=== PATIENT | male | born 1975 | race Caucasian/White ===

== ENCOUNTER 2024-11-27 18:03 | Emergency (ER) | payer BC, SELFPAY ==
--- OUTSIDE RECORDS SUMMARY | 2024-11-27 18:06 | XMS_ITS | Clinical Summary ---
Author Organization [facility] Address [address], [facility] [address] [place] [address] Phone Care Team Providers Care Project Surveyor Name Role Phone Provider, Unknown Primary Care Provider Unavaila ble Allergies Active Allergy Reactions Criticality Noted Date Comments Codeine Other (see Comments) 07/31/2022 Hydrocodone-Acetaminophen Other (see Comments) Low 09/04/2017 Insomnia Penicillins Unknown 07/31/2022 Medications sertraline (ZOLOFT) 50 MG Tablet Take 50 mg by mouth daily. 07/21/2022 Active Multivitamin-Min erals Tablet Take by mouth. Active fluticasone (FLONASE) 50 MCG/ACT Suspension 2 Sprays by Nasal route. 02/05/2019 Active ondansetron (ZOFRAN-ODT) 4 MG TABLET DISPERSIBLEIndic ations:Nausea Take 1 Tablet by mouth every 8 hours as needed for Nausea - 1st line. 10 Tablet 07/31/2022 Active Active Problems No known active problems Immunizations Immunization Administration Dates Next Due Covid-19, Mrna, Lnp-s, PF, 5 0 mcg/0.25 mL dose (Moderna) 08/13/2021 Social History Tobacco Use Types Packs/Day Years Used Date Smoking Tobacco: Never Smokeless Tobacco: Never Tobacco Cessation:Counseling Given: Not Answered Alcohol Use Standard Drinks/Week Comments Not Currently 0 (1 standard drink = 0.6 oz pur e alcohol) Sex and Gender Information Value Date Recorded Sex Assigned at Not on file Legal Sex Male 12:06 AM CDT Gender Identity Not on file Sexual Orientation Not on file Last Filed Vital Signs Vital Sign Reading Time Taken Comments Blood Pressure 114/82 07/31/2022 4:10 PM SALVAGE ENGINEER Pulse 93 07/31/2022 4:10 PM SALVAGE ENGINEER Temperature 36.5 C (97.7 F) 07/31/2022 4:10 PM SALVAGE ENGINEER Respiratory Rate 18 07/31/2022 4:10 PM SALVAGE ENGINEER Oxygen Saturation 99% 07/31/2022 4:10 PM SALVAGE ENGINEER Inhaled Oxygen Concentration - - Weight - - Height - - Body Mass Index - - Plan of Treatment Health Maintenance Due Date Last Done Comments Hepatitis C Virus (HCV) Screening 1975 Hepatitis B Immunization (1 of 3 - 19+ 3-dose series) 1994 Colonoscopy 2020 Colorectal Cancer Screening 2020 Influenza Immunization (#1) 2024 07/31/2017 SARS-COV-2 Immunization ( season) 2024 08/13/2021, 11/02/2020, 10/01/2020 Respiratory Syncytial Virus (RSV) Immunization (Adult) (1 - 1-dose 75+ series) 2050 DTaP/Tdap/Td Immunization Discontinued 2021, 07/22/2011 TdaP Immunization Completed 07/21/2022, 07/22/2011 Meningococcal Immunization (ACWY) Aged Out No longer eligible based on patient's age to complete this topic Pneumococcal Immunization Combined Aged Out No longer eligible based on patient's age to complete this topic Rotavirus Immunization Aged Out No lo nger eligible based on patient's age to complete this topic [place] [address] [place] [address] Care Teams Project Surveyor Relationship Specialty Start Date End Date Provider, Unknown UNKNOWN PCP - General 07/31/22
--- OUTSIDE RECORDS SUMMARY | 2024-11-27 18:06 | XMS_ITS | Clinical Summary ---
Author Organization [facility] Building A Address [address] [place] [address] Care Team Providers Care Instructional Manager Name Role Phone Leonardo Dillon MD Primary Care Provider [phone] Allergies Active Allergy Reactions Criticality Noted Date Comments Codeine Fish Containing Products Unknown 01/04/2018 Pt states he's allergic to seafood but does not know the reaction;its been a long time since he has eaten it Penicillins Hydrocodone-Acetaminoph en Other (See comments) Low 09/04/2017 Insomnia Medications multivitamin-Ca- iron-minerals 18-0.4 mg tablet Take by mouth. Active fluticasone propionate (FLONASE) 50 mcg/actuation nasal sprayIndications :Seasonal allergic rhinitis, unspecified trigger Administer 2 sprays into each nostril daily 16 g 11 9 Active cyclobenzaprine (FLEXERIL) 10 mg tablet Take 1 tablet (10 mg total) by mouth 2 (two) times a day as needed for muscle spasms 20 tablet 3 Active Additional Information Patient not taking.Reported on 08/26/2024 naproxen (NAPROSYN) 500 mg tablet Take 1 tablet (500 mg total) by mouth 2 (two) times a day as needed for pain Take with food. 30 tablet 3 Active sertraline (ZOLOFT) 50 mg tabletIndication s:Mild episode of recurrent major depressive disorder,General ized anxiety disorder TAKE 1 TABLET BY MOUTH EVERY DAY 90 tablet 1 4 Active Active Problems Problem Noted Date Diagnosed Date Annual physical exam 08/26/2024 Assessment & Plan (08/26/2024 1:55 PM FAGOTER): Discussed lifestyle modifications, diet and exercise. Routine blood work ordered/reviewed today. Yearly vision and dental examinations. Mixed hyperlipidemia 08/26/2024 Assessment & Plan (08/26/2024 2:03 PM FAGOTER): Lab Results Component Value Date CHOL 201 (H) 08/23/2024 CHOL 190 08/10/2023 CHOL 202 (H) 09/01/2022 Lab Results Component Value Date HDL 59 08/23/2024 HDL 49 08/10/2023 HDL 62 09/01/2022 Lab Results Component Value Date LDLCALC 124 08/23/2024 LDLCALC 110 08/10/2023 LDLCALC 127 09/01/2022 LDL 84 07/15/2017 Lab Results Component Value Date TRIG 98 08/23/2024 TRIG 155 (H) 08/10/2023 TRIG 63 09/01/2022 No results found for: POCCHDLR No results found for: POCNONHDL No results found for: POCCHLPL Stable Recheck in 12 months Slightly elevated cholesterol Ldl >100 Screening for colon cancer 12/12/2023 Tachycardia 08/10/2023 Assessment & Plan (08/10/2023 11:04 AM FAGOTER): Some tachycardia today Prediabetes 02/07/2023 Assessment & Plan (08/26/2024 2:01 PM FAGOTER): Lab Results Component Value Date HGBA1C 5.7 (H) 08/23/2024 HGBA1C 5.7 (H) 08/10/2023 HGBA1C 5.8 (H) 09/01/2022 Lab Results Component Value Date LDLCALC 124 08/23/2024 CREATININE 1.21 08/23/2024 At goal at this time Continue diet and exercise changes Assessment & Plan (02/12/2024 4:28 PM CDT): Lab Results Component Value Date HGBA1C 5.7 (H) 08/10/2023 HGBA1C 5.8 (H) 09/01/2022 HGBA1C 5.4 08/06/2018 Lab Results Component Value Date LDLCALC 110 08/10/2023 CREATININE 1.12 08/10/2023 At goal at this time Continue diet and exercise changes Assessment & Plan (08/10/2023 10:51 AM FAGOTER): Lab Results Component Value Date HGBA1C 5.8 (H) 09/01/2022 HGBA1C 5.4 08/06/2018 Lab Results Component Value Date LDLCALC 127 09/01/2022 CREATININE 1.04 08/05/2023 At goal at this time Continue diet and exercise changes Assessment & Plan (02/07/2023 4:47 PM CDT): Lab Results Component Value Date HGBA1C 5.8 (H) 09/01/2022 HGBA1C 5.4 08/06/2018 Lab Results Component Value Date LDLCALC 127 09/01/2022 CREATININE 1.23 09/01/2022 At goal at this time Continue diet and exercise changes Rectal bleeding 07/25/2021 Assessment & Plan (07/25/2021 5:27 PM FAGOTER): Suspected hemorrhoids. Rx given, if bleeding reoccurs, notify our office. Labs ordered, referral to GI for possible colonoscopy. 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 Assessment & Plan (07/21/2022 1:08 PM FAGOTER): Restart sertraline. Use as directed. Go to nearest emergency room if you ever feel that you will be a harm to yourself or to others. Assessment & Plan (07/10/2019 8:02 PM CDT): Clinically improved, continue current meds. Assessment & Plan (02/08/2019 2:23 PM CDT): Psychological condition is improving with treatment. Continue current treatment regimen. Regular aerobic exercise. Psychological condition will be reassessed at the next regular appointment. Sertraline 50 mg qd; patient feels he's at a good dose and does not want to increase it. Seasonal allergic rhinitis 02/05/2019 Assessment & Plan (02/08/2019 2:23 PM CDT): Encouraged daily use of antihistamine and nasal steroid. Chronic bilateral low back pain without sciatica 01/04/2018 Overview (01/04/2018): MRI shows buldging disc; currently working with chiropractor and feels better Mild episode of recurrent major depressive disor joshua 03/14/2014 Overview (02/05/2019): Assessment & Plan (08/05/2023 7:54 PM FAGOTER): Stable. Cont. Current prescription medications, sertraline. Assessment & Plan (02/07/2023 4:46 PM CDT): States that he is doing well with current dose Will continue sertraline 50 mg every day Sx have improved Assessment & Plan (07/21/2022 1:08 PM FAGOTER): Restart sertraline. Use as directed. Go to nearest emergency room if you ever feel that you will be a harm to yourself or to others. Assessment & Plan (07/10/2019 8:02 PM CDT): Clinically improved, continue current meds. Assessment & Plan (02/08/2019 2:22 PM CDT): Psychological condition is improving with treatment. Continue current treatment regimen. Regular aerobic exercise. Psychological condition will be reassessed at the next regular appointment. Sertraline 50 mg qd Assessment & Plan (02/06/2018 4:06 PM CDT): Psychological condition is improving with treatment. Continue current treatment regimen. Psychological condition will be reassessed at the next regular appointment. Assessment & Plan (01/04/2018 12:57 PM CDT): Psychological condition is worsening. Regular aerobic exercise. Medication changes per orders. Re-start Zoloft. Psychological condition will be reassessed at the next regular appointment. Recommended counseling, however, patient declined at this time. Resolved Problems Problem Noted Date Diagnosed Date Resolved Date Acute right-sided low back p ain with right-sided sciatica 06/04/2019 07/09/2019 Assessment & Plan (06/04/2019 9:19 PM CDT): Rxs given, ROM exercises encouraged when tolerable. Referral to Back specialist given. Go to nearest ER if S/Sxs worsen. Sore throat 12/22/2018 02/05/2019 Assessment & Plan (12/22/2018 10:47 AM CDT): You may gargle with warm salt water, suck on throat lozenges, or throat sprays Use a decongestant for your congestion. You can dry up your runny nose with an antihistamine Elevate your pillow at night when you are sleeping to reduce the drainage down your throat. Please follow up with your PCP if you are not getting any better Exposure to strep throat 12/22/2018 Strep pharyngitis 12/22/2018 02/05/2019 Assessment & Plan (12/22/2018 10:55 AM CDT): Complete antibiotic as prescribed Tylenol or Motrin for fever/pain Gargle with warm salt water (1tsp salt/1 cup water) Suck on ice chips, popsicles, cough drops, or throat lozenges You may return to work, daycare, or school 24 hours after starting antibiotics and you are fever free Do not share food, drinks, or utensils Replace your toothbrush within 24 hours after starting antibiotics and again after 4-5 days. I recommend washing your pillow cases and sheets after 24 hours Follow up with your PCP if you are not getting better Hand sprrobby left, initial encounter 07/11/2018 02/05/2019 Assessment & Plan (07/11/2018 2:20 PM CDT): Clinically improving, recommended OTC pain reliever of choice prn pain. Continue ROM exercises, patient admits he has a stress ball at home, I encouraged him that this would be good to use. Will follow. RTC if S/Sxs worsen, otherwise, keep upcoming dontrell appt. Encounters Date Type Department Care Team Description 09/23/2024 Hospital Encounter [facility] [address] [place] [address] Toña Flynn MD 09/20/2024 Telephone [facility] Gastroenterology at [place] [address] [facility] [address] [place] [address] Alisha Yepez from Last 3 Months Immunizations Immunization Administration Dates Next Due Influenza, Unspecified 08/26/2024(Deferr ed: Patient Refused),07/31/2017 Moderna SARS-CoV-2 Monovalen t Vaccination (12+ YRS) 11/02/2020,10/01/2020 Tdap 07/21/2022,07/22/2011 Surgical History Surgery Date Site/Laterality Comments HERNIA REPAIR Hernia repair HERNIA REPAIR Medical History Medical History Date Comments Hx Other Medical mvp Pneumonia Family History Medical History Relation Name Comments Diabetes Brother Diabetes Father Diabetes mellit us; Heart failure Father chf; Hypertension Father Hypertension; Breast cancer Maternal Grandmother Cancer , breast; Hypertension Mother Hypertension; Diabetes Sister 1 Diabetes mellit us; Hypertension Sister 2 Hypertension; Relation Name Status Comments Brother Father Alive Maternal Grandmother Mother Alive Sister 1 Alive Sister 2 Social History Tobacco Use Types Packs/Day Years Used Date Smoking Tobacco: Never Smokeless Tobacco: Never Tobacco Cessation:Counseling Given: Not Answered Alcohol Use Standard Drinks/Week Comments No 0 (1 standard drink = 0.6 oz pur e alcohol) AUDIT-C Answer Date Recorded Q1: How often do you have a drink containing alcohol? Never 08/26/2024 Q2: How many drinks containi ng alcohol do you have on a typical day when you are drinking? Patient does not drink Q3: How often do you have si x or more drinks on one occasion? Never 08/26/2024 PHQ-2 Answer Date Recorded PHQ-2 Total Score (If total score is 3 or more points, staff should administer the PHQ-9) 0 08/26/2024 Personal Safety Answer Date Recorded Have you ever been in or are you currently in a harmful physical or emotional relationship or is someone making you feel afraid or unsafe? 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 Not on file Not on file Obstetrics History Last Filed Vital Signs Vital Sign Reading Time Taken Comments Blood Pressure 104/66 08/26/2024 1:44 PM FAGOTER Pulse 100 08/26/2024 1:44 PM FAGOTER Temperature 36.1 C (97 F) 08/10/2023 10:44 AM FAGOTER Respiratory Rate 16 08/26/2024 1:44 PM FAGOTER Oxygen Saturation 97% 08/26/2024 1:44 PM FAGOTER Inhaled Oxygen Concentration - - Weight 89.7 kg (197 lb 12.8 oz) 08/26/2024 1:44 PM FAGOTER Height 193 cm (6' 3.98 ) 08/26/2024 1:44 PM FAGOTER Body Mass Index 24.09 08/26/2024 1:44 PM FAGOTER Plan of Treatment Health Maintenance Due Date Last Done Comments Colon Cancer Screening-Colonoscopy 1975 Hepatitis B Screening 1993 Covid-19 Vaccine ( season) 2024 08/13/2021, 11/02/2020, 10/01/2020 Depression Screening 08/26/2025 08/26/2024, 02/12/2024, 08/10/2023, Additional history exists Regular Well Visit/Exam 18-64 08/26/2025 08/26/2024, 07/24/2023, 07/21/2022, Additional history exists DTaP/Tdap/Td Vaccine (3 - Td or Tdap) 07/21/2032 07/21/2022, 07/22/2011 Influenza Vaccine Discontinued 07/31/2017 Hepatitis C Screening Completed 08/23/2024 Pneumococcal vaccine <65 Aged Out No longer eligible based on patient's age to complete this topic Procedures Procedure Name Priority Date/Time Associated Diagnosis Comments HEPATITIS C ANTIBODY Routine 08/23/2024 8:46 AM FAGOTER Need for hepatitis B screening test from Last 3 Months or Most Recently Relevant to Health Maintenance Results * Hepatitis C antibody Blood (08/23/2024 8:46 AM FAGOTER) Hep C Ab Nonreactive Nonreactive Comment: Interpretive Data Nonreactive: Antibodies to HCV not detected. Does NOT exclude the possibility of recent exposure to HCV. Equivocal: Equivocal for HCV antibodies. Supplemental molecular testing will be automatically performed to determine infection status in accordance with current CDC screening recommendations. Reactive: Positive for HCV antibodies. This may represent current or past HCV infection. Supplemental molecular testing will be automatically performed to determine current infection status in accordance with current CDC screening recommendations. Interpretive data was last revised on 2019. Testing performed by: [facility], [address] [place] [address]., [id number] Blood 08/23/2024 8:46 AM FAGOTER 08/23/2024 4:52 PM FAGOTER us Leonardo Dillon MD LAB MICROBIOLOGY - GENERAL ORDER BLADIMIR Final Result [facility] [address] [facility] Department [place] [address] from Last 3 Months or Most Recently Relevant to Health Maintenance [place] [address] [place] [address] ACCESS CHOICE [facility] ACCESS CHOICE Care Teams Instructional Manager Relationship Specialty Start Date End Date Leonardo Dillon MD [address] [facility] [address] [address] PCP - General Family Medicine 08/10/23
--- OUTSIDE RECORDS SUMMARY | 2024-11-27 18:06 | XMS_ITS | Referral Summary ---
Author Organization [facility] Medical Office Building A Address [address] [place] [address] Care Team Providers Care Quality Assurance Calibrator Name Role Phone Leonardo Dillon MD Primary Care Provider [phone] Encounters Date Type Department Care Team Description 09/23/2024 Hospital Encounter [facility] [address] [place] [address] Toña Flynn MD 09/20/2024 Telephone [facility] Gastroenterology at [place] [address] [facility] [address] [place] [address] Alisha Yepez from Last 3 Months Allergies Active Allergy Reactions Criticality Noted Date [...] 08/26/2024 Assessment & Plan (08/26/2024 1:55 PM TRANSPORTATION PLANNING TECHNICIAN): Discussed lifestyle modifications, diet and exercise. Routine blood work ordered/reviewed today. Yearly vision and dental examinations. Mixed hyperlipidemia 08/26/2024 Assessment & Plan (08/26/2024 2:03 PM TRANSPORTATION PLANNING TECHNICIAN): Lab Results Component Value Date CHOL 201 [...] 08/10/2023 Assessment & Plan (08/10/2023 11:04 AM TRANSPORTATION PLANNING TECHNICIAN): Some tachycardia today Prediabetes 02/07/2023 Assessment & Plan (08/26/2024 2:01 PM TRANSPORTATION PLANNING TECHNICIAN): Lab Results Component Value Date HGBA1C 5.7 [...] changes Assessment & Plan (08/10/2023 10:51 AM TRANSPORTATION PLANNING TECHNICIAN): Lab Results Component Value Date HGBA1C 5.8 [...] 07/25/2021 Assessment & Plan (07/25/2021 5:27 PM TRANSPORTATION PLANNING TECHNICIAN): Suspected hemorrhoids. Rx given, if bleeding reoccurs, notify our office. Labs ordered, referral to GI for possible colonoscopy. 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 Assessment & Plan (07/21/2022 1:08 PM TRANSPORTATION PLANNING TECHNICIAN): Restart sertraline. Use as directed. Go to [...] (02/05/2019): Assessment & Plan (08/05/2023 7:54 PM TRANSPORTATION PLANNING TECHNICIAN): Stable. Cont. Current prescription medications, sertraline. Assessment & Plan (02/07/2023 4:46 PM CDT): States that he is doing well with current dose Will continue sertraline 50 mg every day Sx have improved Assessment & Plan (07/21/2022 1:08 PM TRANSPORTATION PLANNING TECHNICIAN): Restart sertraline. Use as directed. Go to [...] if you are not getting better Hand sprain, left, initial encounter 07/11/2018 02/05/2019 Assessment & Plan (07/11/2018 2:20 PM CDT): Clinically improving, recommended OTC pain reliever of choice prn pain. Continue ROM exercises, patient admits he has a stress ball at home, I encouraged him that this would be good to use. Will follow. RTC if S/Sxs worsen, otherwise, keep upcoming dontrell appt. 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 Not on file Not on file Last Filed Vital Signs Vital Sign Reading Time Taken Comments Blood Pressure 104/66 08/26/2024 1:44 PM TRANSPORTATION PLANNING TECHNICIAN Pulse 100 08/26/2024 1:44 PM TRANSPORTATION PLANNING TECHNICIAN Temperature 36.1 C (97 F) 08/10/2023 10:44 AM TRANSPORTATION PLANNING TECHNICIAN Respiratory Rate 16 08/26/2024 1:44 PM TRANSPORTATION PLANNING TECHNICIAN Oxygen Saturation 97% 08/26/2024 1:44 PM TRANSPORTATION PLANNING TECHNICIAN Inhaled Oxygen Concentration - - Weight 89.7 kg (197 lb 12.8 oz) 08/26/2024 1:44 PM TRANSPORTATION PLANNING TECHNICIAN Height 193 cm (6' 3.98 ) 08/26/2024 1:44 PM TRANSPORTATION PLANNING TECHNICIAN Body Mass Index 24.09 08/26/2024 1:44 PM TRANSPORTATION PLANNING TECHNICIAN Plan of Treatment Not on file Procedures Procedure Name Priority Date/Time Associated Diagnosis Comments HEPATITIS C ANTIBODY Routine 08/23/2024 8:46 AM TRANSPORTATION PLANNING TECHNICIAN Need for hepatitis B screening test from Last 3 Months or Most Recently Relevant to Health Maintenance Results * Hepatitis C antibody Blood (08/23/2024 8:46 AM TRANSPORTATION PLANNING TECHNICIAN) Hep C Ab Nonreactive Nonreactive Comment: Interpretive [...] last revised on 2019. Testing performed by: [facility], [address] [place] [address], [place]., [address] Blood 08/23/2024 8:46 AM TRANSPORTATION PLANNING TECHNICIAN 08/23/2024 4:52 PM TRANSPORTATION PLANNING TECHNICIAN us Leonardo Dillon MD LAB MICROBIOLOGY - GENERAL ORDER BLADIMIR Final Result [facility] [address] [facility] Department [place] [address] from Last 3 Months or Most Recently Relevant to Health Maintenance Insurance [employer] ACCESS CHOICE [facility] ACCESS CHOICE Care Teams Quality Assurance Calibrator Relationship Specialty Start Date End Date Leonardo Dillon MD [address] [place] [address] [address] GOLDM[address] [place] [id number] PCP - General Family Medicine 08/10/23
--- OUTSIDE RECORDS SUMMARY | 2024-11-27 18:06 | XMS_ITS | Encounter Summary ---
Author Organization [facility] Healthcare Address [address] [place] [id number] Care Team Providers Care Moving Picture Operator Name Role Phone Leonardo Dillon MD Primary Care Provider [phone] Reason for Visit * Auth/Cert (Routine) Specialty Diagnoses / Procedures Referred By Contac t Referred To Contact Diagnoses Screening for colon cancer Screening for colon cancer [Z12.11] Procedures MO COLONOSCOPY FLX DX W/COLLJ SPEC WHEN PFRMD COLONOSCOPY Referral ID Status Reason Start Date Expiration Date Visits Re quested Visits Authorized [id number] 1 1 Encounter Details Date Type Department Care Team (Late st Contact Info) Description 09/23/2024 Hospital Encounter [facility] [address] [place] [address] Toña Flynn MD [address] [place] [id number] Social History Tobacco Use Types Packs/Day Years Used Date Smoking Tobacco: Never Smokeless Tobacco: Never Alcohol Use Standard Drinks/Week Comments No 0 [...] on file Legal Sex Male 1:41 AM PET COUNSELOR Gender Identity Not on file Sexual Orientation Not on file 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 Never 08/26/2024 1:43 PM PET COUNSELOR Tamiko Jones MA Q2: How many drinks containing alcohol do you have on a typical day when you are drinking? Patient does not drink 08/26/2024 1:43 PM PET COUNSELOR Tamiko Jones MA Q3: How often do you have six or more drinks on one occasion? Never 08/26/2024 1:43 PM PET COUNSELOR Tamiko Jones MA documented as of this encounter Plan of Treatment Not on file documented as of this encounter Visit Diagnoses Diagnosis Screening for colon cancer- Primary Special screening for malignant neoplasms, colon documented in this encounter Admitting Diagnoses Diagnosis Screening for colon cancer Special screening for malignant neoplasms, colon documented in this encounter Care Teams Moving Picture Operator Relationship Specialty Start Date End Date Leonardo Dillon MD [address] [facility] [address] [address] [place] [id number] PCP - General Family Medicine 08/10/23 documented as of this encounter
[2024-11-27 18:15] VITALS: BP 146/79; PULSE 95; RESP 18; TEMP 36.3; O2SAT 97
--- NOTE | 2024-11-27 18:46 | ED_ITS ---
HPI - Extremity Problem General Chief complaint: Extremity Problem,Nontraumatic Stated complaint: foot pain Time Seen by Provider: 11/27/24 18:40 Source: patient, RN notes reviewed and old records reviewed Mode of arrival: ambulatory Limitations: no limitations History of Present Illness HPI Narrative: 49 year old male present to express care accompanied by spouse with complaints of redness and pain to his right 5th toe distally around nail bed region with no open skin area noted starting today. Patient reports no injury to the right 5th toe. Patient voices increase pain with ambulation and palpation of toe around nail bed. MD Complaint: other (pain to right 5th toe around nailbed) Onset (ago): day(s) (today.) Location: toe (right 5th toe) Severity scale (1-10): 6 Exacerbating factors: weight bearing and palpation Related Data Home Medications ?Medication ?Instructions ?Recorded ?Confirmed ?Last Taken ?Type sertraline 50 mg tablet mg 11/27/24 Unknown History Allergies Allergy/AdvReac Type Severity Reaction Status Date / Time Penicillins Allergy Rash Verified 11/27/24 18:23 Review of Systems Review of Systems: CONSTITUTIONAL: Denies fever, chills, or sweats. EYES: Denies visual changes, redness, or discharge. ENT: Denies rhinorrhea, congestion, sore throat, or otalgia. CARDIOVASCULAR: Denies chest pain, palpitations, or edema. RESPIRATORY: Denies cough or dyspnea. GASTROINTESTINAL: Denies abdominal pain, nausea, vomiting, or diarrhea. GENITOURINARY: Denies dysuria or hematuria. SKIN: Denies rash or itching., reports redness and pain to the tissue around nail bed of right 5th toe MUSCULOSKELETAL: Denies back pain, joint pain, or myalgia. NEUROLOGIC: Denies headache, numbness, or weakness. PSYCHIATRIC: Denies anxiety or depression. All systems reviewed & are unremarkable except as noted in HPI and below PMFSH Past Medical History Medical History (Updated 11/28/24 @ 14:06 by Karen Alston NP) Anxiety and depression Social History Social History (Updated 11/28/24 @ 14:02 by Karen Alston NP) Smoking status: Never smoker Alcohol intake: current Alcohol use details: rare Substance use type: does not use Living arrangements: with family Gender identity (if verbalized by the patient): Male Comments At time of signature, agree with nursing past medical, surgical, social and family history. There is no relevant family history pertinent to the presenting complaint Exam Narrative: GENERAL: Well-appearing, well-nourished, and in no acute distress. HEAD: Normocephalic, atraumatic. EYES: PERRLA and EOMI. ENT: Nares clear, no rhinorrhea or epistaxis. Mucous membranes moist. NECK: Supple.no lymphadenopathy CHEST: Clear to auscultation. No respiratory distress.SAO2 97% on room air HEART: Regular rate and rhythm. No murmur heard. Normal peripheral pulses. ABDOMEN: Soft, nontender, nondistended, normal active bowel sounds. EXTREMITIES: Normal range of motion. No edema. SKIN: Warm, dry, no rash.Redness and tenderness to the tissue around right 5th toe nail with no open wound noted or fluctuation of tissue, is tender to palpation, denies any known injury NEURO: No focal deficits. Alert and oriented x3. Course Course Emergency Course: Patient is aware of diagnosis, understands and agrees to treatment plan.? Anticipatory guidance given.? Patient agrees to follow-up as directed and is aware of reasons to seek care at the emergency department. Portions of this record may have been created with voice recognition software Level of Care: Express Care Visit Vital Signs Vital signs: Vital Signs Temperature 36.3 C L 11/27/24 18:15 Pulse Rate 95 11/27/24 18:15 Respiratory Rate 18 11/27/24 18:15 Blood Pressure 146/79 H 11/27/24 18:15 Pulse Oximetry 97 11/27/24 18:15 Oxygen Delivery Room Air 11/27/24 18:15 Temperature 36.3 C L 11/27/24 18:15 Pulse Rate 95 11/27/24 18:15 Respiratory Rate 18 11/27/24 18:15 Blood Pressure 146/79 H 11/27/24 18:15 Pulse Oximetry 97 11/27/24 18:15 Oxygen Delivery Room Air 11/27/24 18:15 reviewed MDM - Extremity (Nontraumatic) Differential Diagnosis Differential diagnosis: Likely cellulitis and other (inflammation of tissue right 5th toe, paronychia) Medical Records Attestation: I reviewed the patient's medical records. Critical Care Time Critical Care Time Critical Care Time: No Discharge Plan Discharge Clinical Impression: Toe pain, right, Paronychia of fifth toe of right foot Patient Disposition: Home, Self-Care Condition: Stable Instructions: Antibiotic Form Additional Instructions: Soak right 5th toe in warm soapy water twice daily rinse and apply mupirocin ointment and Band-Aid watch for infection--redness, swelling, drainage Tylenol or ibuprofen for any fever pain follow up with PCP in 7-10 days for a wound check recheck if develop fever, chills, increasing symptom Go to the ER if your symptoms become worse of if ANY new symptoms develop Bactrim DS 1 tab twice a day for 7 days If your symptoms persist, change or worsen significantly before you can contact your personal physician then please, without delay, go to the emergency department for further evaluation. Follow-up with PCP in 7-10 days or sooner if needed Follow up with PCP soon in regards to your blood pressure which is elevated above threshold for referral. Blood pressure above 120/80 may indicate pre- hypertension. 146/79 Patient Language: Arabic Prescriptions: New mupirocin [Centany] 2 % ointment 1 applic topical BID Qty: 22 0RF Rx Instructions: apply to right 5th toe nail bed sulfamethoxazole-trimethoprim [Bactrim DS] 800-160 mg tablet 1 tablet PO Q12H Qty: 14 0RF No Action sertraline 50 mg tablet Follow-up/Referrals: Wilma,MD Leonardo [Primary Care Provider] - Stand Alone Forms: Work/School Release IP Time of Disposition: 18:50 Quality Maurizio Coma Scale Eyes: Open Verbal: Oriented and Alert Motor: Follows Commands Maurizio Coma Total Score: 15
== END 2024-11-27 19:15 | disposition home or self-care (01) ==
PROVIDERS: Emergency Provider Registered Nurse; PCP Family Medicine
DX: L03.031 Cellulitis of right toe (principal)
CPT/HCPCS: 99203; G0463